=== PATIENT | male | born 1980 | race African-American/Black ===

== ENCOUNTER 2016-11-10 17:57 | Emergency (ER) | payer SELFPAY ==
[2016-11-10 18:17] LABS: BASOPHIL 0.1 % (0-2); EOSINOPHIL 0.3 % (0-5); HCT 49.6 % (42.0-52.0); HGB 17.8 g/dl (13.2-18.0); LYMPHOCYTE 10.6 % (15-48); MCH 32.6 pg (25.0-31.0); MCHC 35.9 g/dL (32.0-36.0); MCV 90.8 fL (78.0-100.0); MONOCYTE 5.8 % (0-12); MPV 10.9 fL (6.0-9.5); NEUTROPHIL 83.2 % (41-80); PLT 198 K/uL (150-400); RBC 5.46 M/uL (4.70-6.00); WBC 14.7 K/uL (4.0-10.5)
[2016-11-10 18:28] LABS: INR 1.05 (0.9-1.2); PROTHROMBIN TIME 13.3 SECONDS (11.7-14.0); PTT 36.1 SECONDS (23.2-31.4)
[2016-11-10 18:34] LABS: ALBUMIN 4.2 g/dL (3.5-5.0); BILIRUBIN - TOTAL 0.8 mg/dL (0.1-1.0); GLOBULIN (CALCULATION) 3.4 g/dL (2.2-4.2); MAGNESIUM 1.59 mg/dL (1.40-2.10); POTASSIUM 3.8 mmol/L (3.5-5.1); TOTAL PROTEIN 7.6 g/dL (6.4-8.3)
[2016-11-10 18:37] LABS: MYOGLOBIN 26 ng/mL (26-65); PRO-BNP 46 pg/mL (0-125); TROPONIN T < 0.010 ng/mL
[2016-11-10 18:51] LABS: LACTIC ACID 1.3 mmol/L (0.5-2.2)
[2016-11-10 19:34] LABS: CLARITY CLEAR (CLEAR); COLOR YELLOW (YELLOW)
[2016-11-10 19:35] LABS: BILIRUBIN NEGATIVE (NEGATIVE); BLOOD NEGATIVE Ery/uL (NEGATIVE); GLUCOSE (U) NORMAL (NORMAL); KETONE (U) NEGATIVE (NEGATIVE); LEUKOCYTES TRACE Leu/uL (NEGATIVE); NITRITE NEGATIVE (NEGATIVE); PROTEIN NEGATIVE (NEGATIVE)
[2016-11-10 19:37] LABS: BACTERIA TRACE; MUCOUS TRACE
== END 2016-11-10 20:45 | disposition home or self-care (01) ==
LOC: FER 17:57
PROVIDERS: Internal Medicine
DX: J18.9 Pneumonia, unspecified organism (principal); R51 Headache; I10 Essential (primary) hypertension; R82.90 Unspecified abnormal findings in urine
CPT/HCPCS: 36415; 71010; 80053; 81001; 82550; 82553; 83605; 83735; 83874; 83880; 84484; 85025; 85610; 85730; 87040; 87088; 87450; 87804; 87899; 93005